=== PATIENT | female | born 2000 | race Two or more races ===

== ENCOUNTER 2020-08-29 19:21 | Emergency (ER) | payer BC, OTHER ==
[~2020-08-29] VITALS: Ht 160 cm; Wt 70.4 kg
[2020-08-29] MEDS ORDERED: FAMOTIDINE 20 MG/2 ML IVPush ONE (20:00)
[2020-08-29] MEDS ORDERED: SODIUM CHLORIDE FLUSH 10ML SYR IVF ONE (20:00)
[2020-08-29] MEDS ORDERED: ONDANSETRON 2MG/ML, 2ML IVPush ONE (20:00)
[2020-08-29] MEDS ORDERED: SODIUM CHLORIDE 0.9% 1,000ML IVBOLUS ONE (20:00)
[2020-08-29] MEDS ORDERED: MAALOX/HYOSCYAMINE/LIDOCAINE 45 ML BTL PO ONE (20:00)
[2020-08-29] MEDS ORDERED: FAMOTIDINE 20 MG TABLET ONE (20:11)
[2020-08-29] MEDS ORDERED: MAALOX/HYOSCYAMINE/LIDOCAINE 45 ML BTL ONE (20:11)
[2020-08-29] MEDS ORDERED: ONDANSETRON ODT 4 MG ONE (20:11)
[2020-08-29 20:24] LABS: BASOPHILS % (AUTO) 0 % (0-1); EOSINOPHILS % (AUTO) 0 % (1-7); LYMPHOCYTES % (AUTO) 2 % (22-44); MEAN CORPUSCULAR HEMOGLOBIN 31.3 pg (27.0-34.8); MEAN CORPUSCULAR HGB CONC 34.4 g/dL (32.4-35.8); MEAN PLATELET VOLUME 8.9 fL (7.4-10.4); MONOCYTES % (AUTO) 3 % (2-9); NEUTROPHILS % (AUTO) 96 % (42-75); PLATELET COUNT 227 x10^3/uL (130-400); RED CELL DISTRIBUTION WIDTH 12.1 % (9.6-15.2)
[2020-08-29] MEDS ORDERED: FAMOTIDINE 20 MG TABLET PO ONE (20:30)
[2020-08-29] MEDS ORDERED: ONDANSETRON ODT 4 MG PO ONE (20:30)
--- NOTE | 2020-08-29 20:30 | NUR ---
LATE ENTRY D/T PT CARE: PT AMBULATED TO RESTROOM WITH STEADY GAIT TO PROVIDE URINE SAMPLE. UA COLLECTED AND SENT TO LAB. PIV PLACEMENT ATTEMPTED X3 WITHOUT SUCCESS. PT REFUSED ANOTHER ATTEMPT. APPAREL MANAGER AT BEDSIDE FOR LAB DRAW. MANUEL UPDATED THAT THERE IS NO IV ACCESS. ORDERS CHANGED TO PO.
[2020-08-29 20:33] LABS: MICROSCOPIC INDICATED
[2020-08-29 20:36] LABS: ALANINE AMINOTRANSFERASE 28 U/L (12-78); ALBUMIN 3.8 g/dL (3.4-5.0); ANION GAP 9 mmol/L (5-15); CALCIUM 8.3 mg/dL (8.5-10.1); CHLORIDE 109 mmol/L (98-107); CREATININE 0.96 mg/dL (0.55-1.02)
[2020-08-29 20:41] LABS: ALKALINE PHOSPHATASE 109 U/L (45-117); BILIRUBIN,TOTAL 0.5 mg/dL (0.2-1.0); TOTAL PROTEIN 7.6 g/dL (6.4-8.2)
[2020-08-29] MEDS ORDERED: PROMETHAZINE 25 MG/ML, 1ML ONE (20:42)
--- NOTE | 2020-08-29 20:52 | NUR ---
PT VOMITED UP GI COCKTAIL. ERNP NOTIFIED. VERBAL ORDER RECEIVED FOR PHENERGAN 25MG IM ONCE. DIPPER AND BAKER PER ORDER.
[2020-08-29] MEDS ORDERED: PROMETHAZINE 25 MG/ML, 1ML IM ONE (21:00)
[2020-08-29 21:02] LABS: MD SCAN
--- NOTE | 2020-08-29 21:38 | NUR ---
PT HAS DRANK 1/2 BOTTLE OF HER WATER. PT DENIES N/V. PT READY TO DC. ERP NOTIFIED.
[2020-08-29 22:08] VITALS: BP 140/90
== END 2020-08-29 22:10 | disposition home or self-care (01) ==
LOC: ED 20:40
DX: K52.9 Noninfective gastroenteritis and colitis, unspecified (principal); D72.829 Elevated white blood cell count, unspecified
CPT/HCPCS: 36415; 80053; 81001; 83690; 84703; 85025; 87086; 96372; 99284; J2550; Q0162